=== PATIENT | male | born 1985 | race Caucasian/White ===

== ENCOUNTER 2017-06-01 13:34 | Emergency (ER) | payer BC, OTHER ==
[~2017-06-01] VITALS: Ht 180.3 cm; Wt 104.3 kg
[2017-06-01 14:56] VITALS: BP 152/110
[2017-06-01] MEDS ORDERED: PROMETHAZINE HCL 25 MG/ML 1ML IM ONE ×2 (15:15)
[2017-06-01] MEDS ORDERED: MORPHINE SULFATE 10 MG/ML INJ 1ML SDV IM ONE (15:15)
[2017-06-01] MEDS ORDERED: HYDROmorphone HCL 2 MG/ML VL IM ONE (15:15)
[2017-06-01] MEDS ORDERED: MEPERIDINE HCL (50 MG/ML) 1 ML VIAL IM ONE (15:30)
== END 2017-06-01 17:03 | disposition home or self-care (01) ==
LOC: ER 13:34
DX: M54.16 Radiculopathy, lumbar region (principal); M51.27 Other intervertebral disc displacement, lumbosacral region
CPT/HCPCS: 72131; 96372; 99284; J2175; J2550